=== PATIENT | male | born 1970 | race Two or more races ===

== ENCOUNTER 2019-04-17 22:28 | Emergency (ER) | payer BC, OTHER ==
[~2019-04-17] VITALS: Ht 195.6 cm; Wt 136.1 kg
[2019-04-17] MEDS ORDERED: cefTRIAXone 1 GM in NS 55 ML IVPB ONE (23:00)
[2019-04-17] MEDS ORDERED: Morphine Sulfate 4mg/ml Inj (IV USE ONLY) IVP ONE (23:00)
[2019-04-17 23:10] LABS: BASOPHILS % (AUTO) 0.9 % (0.0-2.0); EOSINOPHILS % (AUTO) 1.8 % (0.0-3.0); HEMATOCRIT 37.9 % (42.0-52.0); HEMOGLOBIN 12.6 G/DL (14.2-18.0); LYMPHOCYTES % (AUTO) 34.5 % (20.0-45.0); MEAN CORPUSCULAR VOLUME 85 FL (80-99); MONOCYTES % (AUTO) 3.2 % (1.0-10.0); NEUTROPHILS % (AUTO) 59.6 % (45.0-75.0); PLATELET COUNT 312 K/UL (150-450); RED BLOOD COUNT 4.44 M/UL (4.70-6.10); RED CELL DISTRIBUTION WIDTH 13.1 % (11.6-14.8); WHITE BLOOD COUNT 7.1 K/UL (4.8-10.8)
[2019-04-17 23:15] VITALS: BP 129/79
[2019-04-17 23:16] LABS: INR 2.1 (0.9-1.1)
--- NOTE | 2019-04-17 23:23 | Diagnostic Imaging Report ---
Indication: Painful urination, hematuria, right flank pain Technique: Spiral acquisitions obtained through the abdomen and pelvis. No oral contrast utilized, per emergency room physician request No IV oral IV contrast, per urinary stone protocol. Multiplanar reconstructions were generated. Total dose length product 1429 mGycm. CTDIvol(s) 19 mGy. Dose reduction achieved using automated exposure control Comparison: None Findings: There is apparent mild bladder wall thickening, although this is most likely an artifact of under distention. No renal or ureteral calculi, hydronephrosis, or hydroureter demonstrated. Lack of IV contrast limits assessment of the renal parenchyma. No gross renal parenchymal mass or cyst is evident. Lack of IV contrast limits assessment of the other solid organs. The liver, gallbladder, bile ducts are unremarkable. The pancreas is fatty replaced. The spleen, adrenals are unremarkable. No retroperitoneal or mesenteric mass or adenopathy. No pelvic mass or adenopathy. The appendix is normal. No evidence of colonic diverticulosis or diverticulitis. No small bowel distention. No free or loculated intraperitoneal gas or fluid is evident. Some atelectasis or scar is seen at the right lung base. There is a small anterior wall pericardial effusion versus thickening. The bones demonstrate degenerative spondylosis changes. Impression: Apparent mild bladder wall thickening, most likely an artifact of under distention although cystitis not completely excludable No urinary tract abnormality otherwise. No other findings to suggest etiology of stated clinical history of flank pain and hematuria Right basilar pulmonary parenchymal atelectasis or scarring Small anterior wall pericardial effusion versus thickening Degenerative spondylosis changes are incidentally noted This agrees with the preliminary interpretation provided overnight by [facility]eradiology service. The CT scanner at [facility] is accredited by the [employer] and the scans are performed using protocols designed to limit radiation exposure to as low as reasonably achievable to attain images of sufficient resolution adequate for diagnostic evaluation.
[2019-04-17 23:30] LABS: ANION GAP 11 mmol/L (5-15); BLOOD UREA NITROGEN 11 mg/dL (7-18); CALCIUM 9.6 MG/DL (8.5-10.1); CARBON DIOXIDE 29 MMOL/L (21-32); CHLORIDE 102 MMOL/L (98-107); CREATININE 1.3 MG/DL (0.55-1.30); POTASSIUM 3.2 MMOL/L (3.5-5.1); SODIUM 141 MMOL/L (136-145)
[2019-04-17 23:34] LABS: ALANINE AMINOTRANSFERASE 26 U/L (12-78); ALBUMIN 3.6 G/DL (3.4-5.0); ALBUMIN/GLOBULIN RATIO 0.9 (1.0-2.7); ALKALINE PHOSPHATASE 73 U/L (46-116); ASPARTATE AMINO TRANSFERASE 19 U/L (15-37); BILIRUBIN,TOTAL 0.5 MG/DL (0.2-1.0)
[2019-04-18] MEDS ORDERED: HYDROCHLOROTHIA50 MG ORAL (00:02)
[2019-04-18] MEDS ORDERED: SYMTUZA 800-151 EACH PO (00:03)
[2019-04-18] MEDS ORDERED: VITAMIN D310 MCG ORAL (00:04)
[2019-04-18] MEDS ORDERED: ATENOLOL25 MG ORAL (00:04)
[2019-04-18] MEDS ORDERED: FLOMAX0.4 MG ORAL (00:05)
[2019-04-18] MEDS ORDERED: COZAAR50 MG ORAL (00:07)
[2019-04-18] MEDS ORDERED: CRESTOR20 MG ORAL (00:08)
[2019-04-18] MEDS ORDERED: NORCO 5-325 TA1 EACH ORAL (00:09)
[2019-04-18] MEDS ORDERED: WARFARIN SODIUM2 MG ORAL (00:09)
[2019-04-18] MEDS ORDERED: FISH OIL EC 1,1 EACH PO (00:10)
[2019-04-18] MEDS ORDERED: Ketorolac 30mg Inj IV ONE (01:00)
[2019-04-18] MEDS ORDERED: DOXYCYCLINE MO100 MG ORAL (01:21)
--- NOTE | 2019-04-18 01:35 | Emergency Room Report ---
History of Present Illness General Chief Complaint: Male Urogenital Problems Source: Patient Present Illness HPI Patient is a 48-year-old male who presents after increased right-sided testicular pain. Patient presenting onset of symptoms this morning. Prior history of HIV as well as Coumadin use. patient had prior hernia surgery. Pain is sharp in nature. Right side of the lower abdomen and testicle. Reports onset this morning. Patient states he subsequently went to work. This is persisted throughout the day. Allergies: Coded Allergies: No Known Allergies (Unverified , 04/17/19) Patient History Past Medical History: see triage record Past Surgical History: unable to obtain Reviewed Nursing Documentation: PMH: Agreed; PSxH: Agreed Nursing Documentation-PMH Hx Hypertension: Yes Review of Systems All Other Systems: negative except mentioned in HPI Physical Exam Vital Signs Date Time Temp Pulse Resp B/P (MAP) Pulse Ox O2 Delivery O2 Flow Rate FiO2 04/17/19 22:21 98.4 96 20 108/66 (80) 98 Room Air Sp02 EP Interpretation: reviewed, normal General Appearance: normal inspection, well appearing, no apparent distress, alert, GCS 15, non-toxic Head: atraumatic ENT: normal ENT inspection, hearing grossly normal, normal voice Neck: normal inspection, full range of motion, supple, no bony tend Respiratory: normal inspection, lungs clear, normal breath sounds, no respiratory distress, no retraction, no wheezing, other - Gynecomastia Cardiovascular #1: regular rate, rhythm, no edema, other Gastrointestinal: normal inspection, normal bowel sounds, non tender, soft, no guarding, no hernia Genitourinary: no CVA tenderness, other - Atrophic testicle, normal testicular lie, normal cremasterics reflex Musculoskeletal: normal inspection, back normal, normal range of motion Neurologic: alert, motor strength/tone normal, 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 Differential diagnosis include was not limited to epididymitis, epididymal orchitis, testicular torsion , kidney stone among others. Because of complexity of patient's case laboratory tests and imaging studies were ordered. Patient's laboratory testing was essentially unremarkable. CT imaging read by radiology showed no evidence of acute intra-abdominal pathology. Ultrasound read by radiology showed epididymal swelling as well as some complex septated area to the right testicle see radiology report for full details.. Patient was given IV Rocephin. It was discussed with patient that antibiotic prescribed may alter the patient's INR and he should have more frequent check of INR this week. Patient was advised to follow-up with his infectious disease doctor patient was also advised to follow-up with urology. He was advised to return if worse. Patient was periodically reexamined for stability and response to treatment. Patient is currently taking [place] and does not appear to require prescription for pain medications at this time. The patient patient stated he will follow up with primary care doctor later today. Patient is advised to return if any worsening condition or if any changes in status that are concerning. This report is dictated with [employer] senior service technician software which may occasionally lead to discrepancies related to use of this software. Labs Test 04/17/19 22:40 White Blood Count 7.1 K/UL (4.8-10.8) Red Blood Count 4.44 M/UL (4.70-6.10) Hemoglobin 12.6 G/DL (14.2-18.0) Hematocrit 37.9 % (42.0-52.0) Mean Corpuscular Volume 85 FL (80-99) Mean Corpuscular Hemoglobin 28.3 PG (27.0-31.0) Mean Corpuscular Hemoglobin Concent 33.2 G/DL (32.0-36.0) Red Cell Distribution Width 13.1 % (11.6-14.8) Platelet Count 312 K/UL (150-450) Mean Platelet Volume 5.9 FL (6.5-10.1) Neutrophils (%) (Auto) 59.6 % (45.0-75.0) Lymphocytes (%) (Auto) 34.5 % (20.0-45.0) Monocytes (%) (Auto) 3.2 % (1.0-10.0) Eosinophils (%) (Auto) 1.8 % (0.0-3.0) Basophils (%) (Auto) 0.9 % (0.0-2.0) Prothrombin Time 21.7 SEC (9.30-11.50) Prothromb Time International Ratio 2.1 (0.9-1.1) Activated Partial Thromboplast Time 36 SEC (23-33) Sodium Level 141 MMOL/L (136-145) Potassium Level 3.2 MMOL/L (3.5-5.1) Chloride Level 102 MMOL/L (98-107) Carbon Dioxide Level 29 MMOL/L (21-32) Anion Gap 11 mmol/L (5-15) Blood Urea Nitrogen 11 mg/dL (7-18) Creatinine 1.3 MG/DL (0.55-1.30) Estimat Glomerular Filtration Rate 58.9 mL/min (>60) Glucose Level 110 MG/DL (74-106) Calcium Level 9.6 MG/DL (8.5-10.1) Total Bilirubin 0.5 MG/DL (0.2-1.0) Aspartate Amino Transf (AST/SGOT) 19 U/L (15-37) Alanine Aminotransferase (ALT/SGPT) 26 U/L (12-78) Alkaline Phosphatase 73 U/L (46-116) Troponin I 0.000 ng/mL (0.000-0.056) Total Protein 7.7 G/DL (6.4-8.2) Albumin 3.6 G/DL (3.4-5.0) Globulin 4.1 g/dL Albumin/Globulin Ratio 0.9 (1.0-2.7) Lipase 101 U/L (73-393) Last Vital Signs Date Time Temp Pulse Resp B/P (MAP) Pulse Ox O2 Delivery O2 Flow Rate FiO2 04/17/19 23:32 98.5 04/17/19 23:15 91 20 129/79 98 Room Air Status: improved Disposition: HOME, SELF-CARE Condition: Stable Scripts Doxycycline Monohydrate* (DOXYCYCLINE MONOHYDRATE*) 100 Mg Capsule 100 MG ORAL Q12H, #14 CAP 0 Refills Prov: Markus Thomas MD 04/18/19 Referrals: NOT CHOSEN IPA/,REFERRING (PCP) Patient Instructions: Epididymitis Markus Thomas MD Apr 18, 2019 01:35
[2019-04-18 01:55] VITALS: BP 118/67
--- NOTE | 2019-04-18 16:54 | Diagnostic Imaging Report ---
Indications: ] Scrotal pain Technique: Grayscale and duplex images of the scrotum Comparison: none Findings:The right testicle measures 2cm in length. It demonstrates decreased heterogeneous echogenicity and increased flow on color imaging. Epididymis is enlarged. There is a septated hydrocele. There is also small varicocele. There is a peripheral testicular cysts, may be a small tunica cyst The left testicle measures 1.8 cm in length. And demonstrates heterogeneous decreased echogenicity. It demonstrates normal flow on Doppler. Normal epididymis. Impression: Evidence of right-sided epididymoorchitis Complex right hydrocele with septations Possible small right varicocele Peripheral testicular cyst on the right This agrees with the preliminary interpretation provided overnight by [facility].
== END 2019-04-18 01:55 | disposition home or self-care (01) ==
LOC: EDBD 22:28 → EMR 22:50
DX: N45.1 Epididymitis (principal); B20 Human immunodeficiency virus [HIV] disease; I10 Essential (primary) hypertension
CPT/HCPCS: 36415; 74176; 76870; 80053; 83690; 84484; 85025; 85610; 85730; 96365; 96375; 99284; J0696; J1885; J2270; J2405; J8499